=== PATIENT | male | born 1935 | race American Indian/Alaskan Native ===

== ENCOUNTER 2019-04-23 08:12 | Emergency (ER) | payer MEDICARE ==
--- NOTE | 2019-04-23 09:34 | Emergency Department Report ---
ED CPR HPI - General Chief Complaint: Cardiac Arrest/CPR Stated Complaint: CA Time Seen by Provider: 04/23/19 09:28 Source: EMS Mode of arrival: Stretcher Limitations: Other - History of Present Illness Initial Comments: This is an 83-year-old man with a history of a craniotomy for metastatic disease, complicated by a staph infection. He is said to be "septic". He was last seen in the detention and our prior to his being found in cardiac arrest. halfway staff initiated CPR. Medics arrived and found the patient with no signs of life. Despite the high unlikelihood of return of spontaneous circulation, the medics did attempt full resuscitation. By the time of arrival the patient had already had prolonged CPR and had 3 doses of epinephrine. He arrives in asystole. His pupils were fixed and dilated. Further resuscitation was futile and he was pronounced DOA. -: minute(s), hour(s) Place: [facility] Bystander CPR Performed: Yes Initial Findings in the Field: unresponsive, systole ROSC in the Field: No Associated Injuries: No Treatments Prior to Arrival: epinephrine mgs # (3) ED Review of Systems ROS: Stated complaint: CA Other details as noted in HPI Comment: Unobtainable due to pts medical conditions ED Past Medical Hx - Past Medical History Previous Medical History?: Yes Hx CVA: Yes Additional medical history: Encephalopathy, dysphagia, endocarditis, ED Physical Exam - General Limitations: Other General appearance: other (GCS 3) - Eye Eye exam: Present: other (Fixed and dilated pupils) - Neck Neck exam: Present: normal inspection - Respiratory Respiratory exam: Present: other (Intubated, good breath sounds bilaterally) - Cardiovascular Cardiovascular Exam: Present: other (No heart sounds) - GI/Abdominal GI/Abdominal exam: Present: distended (Somewhat) - Extremities Exam Extremities exam: Present: normal inspection (No deformity) - Neurological Exam Neurological exam: Present: other (Not applicable) - Skin Skin exam: Present: dry ED Course - Reevaluation(s) Reevaluation #1: Patient was pronounced DOA. The family was counseled. 04/23/19 09:34 Critical care attestation.: If time is entered above; I have spent that time in minutes in the direct care of this critically ill patient, excluding procedure time. ED Disposition Clinical Impression: Cardiac arrest Disposition: DC-20 Is pt being admited?: No Does the pt Need Aspirin: No Condition: Stable Referrals: CECIL HARMON MD [Primary Care Provider] - 3-5 Days Time of Disposition: 09:34
== END 2019-04-23 09:30 ==
LOC: ED 08:12
DX: I46.9 Cardiac arrest, cause unspecified (principal); Z86.73 Personal history of transient ischemic attack (TIA), and cerebral infarction without residual deficits
CPT/HCPCS: 92950